=== PATIENT | male | born 1950 | race Caucasian/White ===

== ENCOUNTER 2016-09-14 11:00 | Emergency (ER) | payer MEDICARE, BC ==
[2016-09-14] VITALS (8 sets, daily range): BP systolic 134–187; BP diastolic 90–122; PULSE 84–98; RESP 16; TEMP 99.5; O2SAT 95–100
[~2016-09-14] VITALS: Ht 175.3 cm; Wt 94.8 kg
[2016-09-14] MEDS ORDERED: ALLO100T PO (11:58)
[2016-09-14] MEDS ORDERED: MIRT1TAB44 PO (11:58)
[2016-09-14] MEDS ORDERED: COUM7.5T PO (11:58)
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
[2016-09-14 12:24] LABS: AUTOMATED NEUTROPHIL # 4.8 TH/MM3 (1.8-7.7); BASOPHIL # 0.1 TH/MM3 (0-0.2); BASOPHIL % 0.8 % (0.0-2.0); EOSINOPHIL % 0.6 % (0.0-4.0); HEMATOCRIT 44.9 % (39.0-51.0); HEMO FLAGS DIFF FINAL; LYMPH % 25.7 % (9.0-44.0); MEAN CELL VOLUME 97.3 FL (80.0-100.0); MEAN CORPUSCULAR HEMOGLOBIN 33.7 PG (27.0-34.0); MEAN CORPUSCULAR HGB CONC 34.6 % (32.0-36.0); MONO % 12.9 % (0.0-8.0); PLATELET COUNT 209 TH/MM3 (150-450); RED BLOOD COUNT 4.62 MIL/MM3 (4.50-5.90); RED CELL DISTRIBUTION WIDTH 13.9 % (11.6-17.2); WHITE BLOOD COUNT 7.9 TH/MM3 (4.0-11.0)
[2016-09-14] MEDS ORDERED: cloNIDine HCL 0.1 MG TAB PO ONE (12:30)
[2016-09-14 12:47] LABS: BLOOD, URINE NEG (NEG); GLUCOSE,URINE NEG (NEG); KETONE, URINE NEG (NEG); NITRITE,URINE NEG (NEG)
[2016-09-14 12:48] LABS: CHLORIDE 109 MEQ/L (98-107); POTASSIUM 3.7 MEQ/L (3.5-5.1); SODIUM (NA) 145 MEQ/L (136-145)
[2016-09-14 12:49] LABS: METHOD OF COLLECTION CLEAN CATCH; URINE COLOR YELLOW (YELLW/STRAW)
[2016-09-14 12:52] LABS: ANION GAP 13 MEQ/L (5-15); APTT (PATIENT) 40.1 SEC (24.3-30.1); BICARBONATE 22.7 MEQ/L (21.0-32.0); BLOOD UREA NITROGEN 15 MG/DL (7-18); INTERNATIONAL NORMALIZED RATIO 2.6 RATIO; PROTHROMBIN TIME - PATIENT 30.2 SEC (9.8-11.6)
[2016-09-14 12:52] LABS: CULTURE IF INDICATED CULT NOT INDICATED
[2016-09-14 12:53] LABS: COMMENT (UR) CULT NOT INDICATED; SQUAMOUS EPITHELIAL CELL URINE 0-5 /hpf (0-5)
[2016-09-14 12:55] LABS: ALT (GPT) 54 U/L (12-78); AST (GOT) 26 U/L (15-37); GLOMERULAR FILTRATION RATE 76 ML/MIN (>89)
[2016-09-14 12:56] LABS: TOTAL BILIRUBIN ADULT 0.4 MG/DL (0.2-1.0)
[2016-09-14 12:58] LABS: ALKALINE PHOSPHATASE 85 U/L (45-117)
[2016-09-14] MEDS ORDERED: IOHEXOL 350 MG/ML 10 ML VIAL (for RAD DIAG) IV ONE (14:26)
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
[2016-09-14] MEDS ORDERED: LISI10TA3 PO (15:53)
[2016-09-14] MEDS ORDERED: NORC5TAB PO (15:53)
[2016-09-14] MEDS ORDERED: LIDO5DIS35 TOPICAL (15:53)
[2016-09-14] MEDS ORDERED: hydrALAZINE HCL 20 MG/ML VIAL IV PUSH ONE (16:00)
== END 2016-09-14 16:44 | disposition home or self-care (01) ==
LOC: PHED 11:00
DX: S22.41XA Multiple fractures of ribs, right side, initial encounter for closed fracture (principal); I10 Essential (primary) hypertension; Z79.01 Long term (current) use of anticoagulants; Z86.59 Personal history of other mental and behavioral disorders; Z86.79 Personal history of other diseases of the circulatory system; Z87.39 Personal history of other diseases of the musculoskeletal system and connective tissue; Z86.711 Personal history of pulmonary embolism; Z86.718 Personal history of other venous thrombosis and embolism; W18.39XA Other fall on same level, initial encounter
CPT/HCPCS: 71260; 74177; 80053; 81001; 85025; 85610; 85730; 96374; 99284; J0360; Q9967